=== PATIENT | female | born 1950 | race American Indian/Alaskan Native ===

== ENCOUNTER → 2017-11-23 | Outpatient (CLI) | payer MEDICARE, OTHER ==
[~2017-11-23] MED LIST: BISHYD5; ENJUVIA PO; ESTR.05TPW; ESTR.9; HYDCHL25 PO; LEVSOD50 PO; LOSA50 PO; METO50 PO; METO50ER PO; OLME20 PO
== END ==
LOC: LAB SHORT 09:48 → PLD 09:48
DX: D48.5 Neoplasm of uncertain behavior of skin (principal)
CPT/HCPCS: 88305

== ENCOUNTER → 2018-09-19 | Outpatient (CLI) | payer MEDICARE, OTHER | END | disposition home or self-care (01) | LOC: PLD 11:35 → LAB SHORT 11:35 | DX: D48.5 Neoplasm of uncertain behavior of skin (principal) | CPT/HCPCS: 88305 ==

== ENCOUNTER → 2018-09-28 | Outpatient (CLI) | payer MEDICARE, OTHER | END | disposition home or self-care (01) | LOC: LAB SHORT 15:57 → PLD 15:57 | DX: C44.41 Basal cell carcinoma of skin of scalp and neck (principal) | CPT/HCPCS: 88305 ==

== ENCOUNTER 2020-01-21 06:50 | Day surgery (SDC) | payer MEDICARE, OTHER ==
[~2020-01-21 06:50] MED LIST changes: +BIOTIN5000 MC1 SL; +CYCLOBENZAPRINE5 MG PO; +DULCOLAX STOOL100 MG PO; +Flonase 0.05% N16 GM; +GABA100 PO; +MAXALT10 MG PO; +MULTI-DAY PLUS1 EAC1 PO; +Vitamin D2000 UNIT PO
== END 2020-01-21 08:54 | disposition home or self-care (01) ==
PROVIDERS: Student in an Organized Health Care Education/Training Program
PROC: 0DBH8ZX Excision of Cecum, Via Natural or Artificial Opening Endoscopic, Diagnostic (ICD-10-PCS; principal; 2020-01-21 08:00)
DX: Z12.11 Encounter for screening for malignant neoplasm of colon (principal); K63.5 Polyp of colon; K64.4 Residual hemorrhoidal skin tags; K64.8 Other hemorrhoids; K57.30 Diverticulosis of large intestine without perforation or abscess without bleeding; I10 Essential (primary) hypertension; E03.9 Hypothyroidism, unspecified; Z79.899 Other long term (current) drug therapy

== ENCOUNTER → 2020-06-02 | Outpatient (CLI) | payer MEDICARE, OTHER ==
[~2020-06-02] MED LIST changes: +PANT40 PO; +VITAMIN B125000 MC1 PO
== END | disposition home or self-care (01) ==
LOC: PLD 08:05 → LAB SHORT 08:05
DX: L98.8 Other specified disorders of the skin and subcutaneous tissue (principal)
CPT/HCPCS: 88305

== ENCOUNTER → 2020-11-03 | Outpatient (CLI) | payer MEDICARE, OTHER ==
[~2020-11-03] MED LIST changes: +Apple Cider Vi300 MG PO; +CLIN150 PO; +LACT PO; +Norco 5-325 Ta1 EACH PO; +TRIPLE ANTIBIO1 EAC1 TOP
== END | disposition home or self-care (01) ==
LOC: LAB 11:11 → LAB SHORT 11:11
DX: D22.5 Melanocytic nevi of trunk (principal)
CPT/HCPCS: 88305

== ENCOUNTER → 2020-11-18 | Outpatient (CLI) | payer MEDICARE, OTHER | END | disposition home or self-care (01) | LOC: LAB SHORT 07:55 → PLD 07:55 | DX: D22.5 Melanocytic nevi of trunk (principal) | CPT/HCPCS: 88305 ==

== ENCOUNTER 2021-01-04 21:14 | Inpatient (IN) | payer MEDICARE, OTHER ==
[~2021-01-04] VITALS: Ht 172.7 cm; Wt 78.4 kg
[~2021-01-04 21:14] MED LIST changes: -Apple Cider Vi300 MG PO; -CLIN150 PO; -LACT PO; -Norco 5-325 Ta1 EACH PO; -TRIPLE ANTIBIO1 EAC1 TOP
[2021-01-05 00:04] LABS: BASOPHILS ABSOLUTE AUTO 0.11 K/mm3 (0.00-0.23); BASOPHILS PERCENT AUTO 1 % (0-2); EOSINOPHILS ABSOLUTE AUTO 0.33 K/mm3 (0.00-0.68); EOSINOPHILS PERCENT AUTO 3 % (0-6); Hematocrit 37.6 % (33.0-51.0); Hemoglobin 12.6 g/dL (11.5-16.0); IMMATURE GRAN ABSOLUTE AUTO 0.07 K/mm3 (0.00-0.10); IMMATURE GRAN PERCENT AUTO 1 % (0-1); LYMPHOCYTES ABSOLUTE AUTO 1.94 K/mm3 (0.84-5.20); LYMPHOCYTES PERCENT AUTO 15 % (21-46); MONOCYTES ABSOLUTE AUTO 0.92 K/mm3 (0.16-1.47); MONOCYTES PERCENT AUTO 7 % (4-13); Mean Corpuscular HGB 30.5 pg (26.0-34.0); Mean Corpuscular HGB Conc 33.5 g/dL (31.5-36.5); Mean Corpuscular Volume 91 fL (80-100); Mean Platelet Volume 10.2 fL (9.1-12.4); NEUTROPHILS ABSOLUTE AUTO 9.89 K/mm3 (1.96-9.15); NEUTROPHILS PERCENT AUTO 75 % (41-73); Platelet Count 265 K/mm3 (150-400); RDW Coefficient Variation 12.5 % (11.7-14.2); RDW Standard Deviation 41.5 fL (35.1-46.3); Red Blood Cell Count 4.13 M/mm3 (3.80-5.20); White Blood Cell Count 13.26 K/mm3 (4.00-11.30)
[2021-01-05 00:22] LABS: Alanine Aminotransfer (ALT/SGP 21 U/L (12-78); Albumin, Blood 4.1 g/dL (3.4-5.0); Albumin/Globulin Ratio 1.6 (0.8-1.8); Alk Phos 41 U/L (50-136); Anion Gap 5 mmol/L (6-16); Aspartate Aminotrans (AST/SGOT 10 U/L (12-37); Bilirubin, Total 0.4 mg/dL (0.1-1.0); Blood Urea Nitrogen 23 mg/dL (8-24); Bun/Creatinine Ratio 24.1 (12.0-20.0); CO2, Blood 28 mmol/L (21-32); Calcium, Blood 8.3 mg/dL (8.5-10.1); Chloride, Blood 101 mmol/L (98-108); Creatinine, Blood 0.95 mg/dL (0.40-1.00); Globulin, Blood 2.6 g/dL (2.2-4.0); Glomerular Filtration Rate >60 (60-); Glucose, Blood 96 mg/dL (70-99); Potassium, Blood 3.9 mmol/L (3.5-5.5); Sodium, Blood 134 mmol/L (136-145); Total Protein, Blood 6.7 g/dL (6.4-8.2)
[2021-01-05] MEDS ORDERED: Apple Cider Vi300 MG PO (06:05)
--- NOTE | 2021-01-05 06:48 | NUR ---
SHIFT SUMMARY PT ARRIVED TO FLOOR AT 0558, STABLE, INDEPENDENT, DENIES PAIN AT THIS TIME, ADMISSION COMPLETE, MILD SWELLING AND REDNESS TO R INDEX FINGER W/ RASH ON FINGER AND WRIST. DENIES ANY NEEDS AT THIS TIME, TELEMETRY IN PLACE AND CONFIRMED. WILL CONTINUE TO MONITOR AND REPPORT TO ONCOMING DAY RN.
[2021-01-05 08:41] LABS: BASOPHILS ABSOLUTE AUTO 0.07 K/mm3 (0.00-0.23); BASOPHILS PERCENT AUTO 1 % (0-2); EOSINOPHILS ABSOLUTE AUTO 0.02 K/mm3 (0.00-0.68); EOSINOPHILS PERCENT AUTO 0 % (0-6); Hematocrit 38.2 % (33.0-51.0); Hemoglobin 12.9 g/dL (11.5-16.0); IMMATURE GRAN ABSOLUTE AUTO 0.05 K/mm3 (0.00-0.10); IMMATURE GRAN PERCENT AUTO 1 % (0-1); LYMPHOCYTES ABSOLUTE AUTO 0.67 K/mm3 (0.84-5.20); LYMPHOCYTES PERCENT AUTO 7 % (21-46); MONOCYTES ABSOLUTE AUTO 0.13 K/mm3 (0.16-1.47); MONOCYTES PERCENT AUTO 1 % (4-13); Mean Corpuscular HGB 30.4 pg (26.0-34.0); Mean Corpuscular HGB Conc 33.8 g/dL (31.5-36.5); Mean Corpuscular Volume 90 fL (80-100); Mean Platelet Volume 10.3 fL (9.1-12.4); NEUTROPHILS PERCENT AUTO 91 % (41-73); Platelet Count 279 K/mm3 (150-400); RDW Coefficient Variation 12.6 % (11.7-14.2); RDW Standard Deviation 41.4 fL (35.1-46.3); Red Blood Cell Count 4.25 M/mm3 (3.80-5.20); White Blood Cell Count 9.84 K/mm3 (4.00-11.30)
[2021-01-05 08:49] LABS: Alanine Aminotransfer (ALT/SGP 18 U/L (12-78); Albumin, Blood 3.9 g/dL (3.4-5.0); Albumin/Globulin Ratio 1.4 (0.8-1.8); Alk Phos 38 U/L (50-136); Anion Gap 6 mmol/L (6-16); Aspartate Aminotrans (AST/SGOT 9 U/L (12-37); Bilirubin, Total 0.6 mg/dL (0.1-1.0); Blood Urea Nitrogen 17 mg/dL (8-24); Bun/Creatinine Ratio 23.4 (12.0-20.0); CO2, Blood 24 mmol/L (21-32); Calcium, Blood 8.2 mg/dL (8.5-10.1); Chloride, Blood 104 mmol/L (98-108); Creatinine, Blood 0.73 mg/dL (0.40-1.00); Globulin, Blood 2.7 g/dL (2.2-4.0); Glomerular Filtration Rate >60 (60-); Glucose, Blood 138 mg/dL (70-99); Potassium, Blood 4.2 mmol/L (3.5-5.5); Sodium, Blood 134 mmol/L (136-145); Total Protein, Blood 6.6 g/dL (6.4-8.2)
[2021-01-05 13:37] LABS: SARS-Cov-2 (COVID-19) PCR, MMC NEGATIVE (NEGATIVE)
--- NOTE | 2021-01-05 17:05 | NUR ---
PT TO SDS FROM 209. NPO SINCE THIS AM. L AC IV IN PLACE, FLUSHES s DIFFICULTY. VOIDS PRIOR TO SDS. Lungs clear T/O to Auscultation. History, Chart, Medications and Allergies reviewed before start of procedure.
--- NOTE | 2021-01-06 04:30 | NUR ---
SHIFT SUMMARY POD#1 RIGHT FINGER I+D. AAOX4. DISCOMFORT CONTROLLED WITH X1 NORCO. NO NAUSEA/EMESIS. DRESSING TO RIGHT HAND C/D/I. CAP REFILL BRISK, DENIES N/T, MOVES FINGERS WELL. UP TO RESTROOM INDEPENDENTLY. GOOD PO INTAKE + OUTPUT. IV ABX PER ORDERS. NO ACUTE CHANGES OVER NIGHT. PT CURRENTLY RESTING IN BED WITH CALL LIGHT IN REACH.
[2021-01-06] MEDS ORDERED: LACT PO (10:39)
[2021-01-06] MEDS ORDERED: CLIN150 PO (10:40)
[2021-01-06] MEDS ORDERED: TRIPLE ANTIBIO1 EAC1 TOP (10:40)
[2021-01-06] MEDS ORDERED: Norco 5-325 Ta1 EACH PO (10:40)
--- NOTE | 2021-01-06 13:44 | NUR ---
DISCHARGE SUMMARY PT GIVEN VERBAL AND WRITTEN DC INSTRUCTIONS. IV REMOVED, TIP INTACT. PT VERBALIZED UNDERSTANDING ABOUT DISCHARGE INSTRUCTIONS. PT WHEELED OUT IN WHEELCHAIR AND DISCHARGED IN VEHICLE WITH HER .
--- NOTE | 2021-01-08 13:53 | NUR ---
PT CALLED AND STATED CLINDAMYCIN MAKING NAUSEATED. REQUESTED NEW ABX. SPOKE TO DR HUI AND OBTAINED ORDER FOR DOXYCYCLINE 100 MG PO BID, DISPENSE 10 TABS. CALLED TO [facility] PER PT REQUEST.
== END 2021-01-06 13:15 | disposition home or self-care (01) | DRG 603 ==
LOC: ER 21:14 → ERHOLD 01-05 02:27 → ER 01-05 02:27 → SURS 01-05 02:27 → MEDS 01-05 02:27 → SURS 01-05 05:46
PROVIDERS: Emergency Medicine; Orthopaedic Surgery; ADMIT Internal Medicine
PROC: 0JCJ0ZZ Extirpation of Matter from Right Hand Subcutaneous Tissue and Fascia, Open Approach (ICD-10-PCS; principal; 2021-01-05 19:45)
DX: L03.011 Cellulitis of right finger (principal); S61.240A Puncture wound with foreign body of right index finger without damage to nail, initial encounter; I10 Essential (primary) hypertension; K58.9 Irritable bowel syndrome, unspecified; E03.9 Hypothyroidism, unspecified; Z91.013 Allergy to seafood; Z90.710 Acquired absence of both cervix and uterus; Z90.89 Acquired absence of other organs; Z88.1 Allergy status to other antibiotic agents; Y93.H2 Activity, gardening and landscaping; Z98.890 Other specified postprocedural states; Y92.007 Garden or yard of unspecified non-institutional (private) residence as the place of occurrence of the external cause; W60.XXXA Contact with nonvenomous plant thorns and spines and sharp leaves, initial encounter
CPT/HCPCS: 36415; 73201; 76882; 80053; 83605; 85025; 87040; 90471; 90714; 96361; 96365; 96367; 96375; 96376; 99284-25; A9270; G0378; J1100; J1200; J1885; J2250; J2405; J2543; J2704; J2930; J3010; J3370; J7030; J7040; J7050; J7120; Q9967; U0004

== ENCOUNTER → 2022-12-06 | Outpatient (CLI) | payer MEDICARE, OTHER ==
[~2022-12-06] MED LIST changes: +Apple Cider Vi300 MG PO; +CLIN150 PO; +LACT PO; +Norco 5-325 Ta1 EACH PO; +TRIPLE ANTIBIO1 EAC1 TOP
== END | disposition home or self-care (01) ==
LOC: PLD 11:33 → LAB SHORT 11:33
DX: D48.5 Neoplasm of uncertain behavior of skin (principal)
CPT/HCPCS: 88305

== ENCOUNTER 2024-11-12 05:10 | Emergency (ER) | payer MEDICARE, OTHER ==
[~2024-11-12] VITALS: Ht 172.7 cm; Wt 78.5 kg
[~2024-11-12 05:10] MED LIST changes: +ASPI81CH PO; +CLIMARA1 EACH TOP; +ELDERBERRY IMM1 EACH PO; +ELDERBERRY350 MG PO; +GLUCHON PO; +MAGNESIUM OXID500 MG PO; +MIRALAX17 GM PO; +OXYC5 PO; +PROM25 PO; +TIZA4 PO; +TRAM50 PO; +VITAMIN D310 MC4 PO; +Vitamin B Comple1 EA PO; +Vitamin C100 M1 PO
[2024-11-12] MEDS ORDERED: Amoxicillin/Clavulanate K 875 MG Tab PO ONE (07:10)
[2024-11-12] MEDS ORDERED: HYDROcodone 5-APAP 325 TAB PO ONE (07:10)
[2024-11-12 07:27] VITALS: BP 156/73
[2024-11-12] MEDS ORDERED: AMOCLA875 PO (07:44)
[2024-11-12] MEDS ORDERED: OXAYDO5 M1 PO (17:30)
== END 2024-11-12 08:00 | disposition home or self-care (01) ==
LOC: ER 05:10
DX: S61.451A Open bite of right hand, initial encounter (principal); W55.01XA Bitten by cat, initial encounter; I10 Essential (primary) hypertension; E03.9 Hypothyroidism, unspecified; Z88.1 Allergy status to other antibiotic agents; Z91.013 Allergy to seafood; Z79.899 Other long term (current) drug therapy; Z79.890 Hormone replacement therapy
CPT/HCPCS: 73120; 99283; 99283-25; A9270

== ENCOUNTER 2024-11-12 15:48 | Emergency (ER) | payer MEDICARE, OTHER ==
[~2024-11-12] VITALS: Ht 172.7 cm; Wt 78.5 kg
[~2024-11-12 15:48] MED LIST changes: +AMOCLA875 PO
[2024-11-12 16:03] VITALS: BP 154/105
[2024-11-12] MEDS ORDERED: OXAYDO5 M1 PO (17:30)
== END 2024-11-12 17:34 | disposition home or self-care (01) ==
LOC: ER 15:48
DX: S61.452A Open bite of left hand, initial encounter (principal); L08.9 Local infection of the skin and subcutaneous tissue, unspecified; I10 Essential (primary) hypertension; Z91.013 Allergy to seafood; Z88.1 Allergy status to other antibiotic agents; Z79.890 Hormone replacement therapy; Z79.899 Other long term (current) drug therapy; W55.01XA Bitten by cat, initial encounter
CPT/HCPCS: 99283

== ENCOUNTER → 2024-11-22 | Outpatient (CLI) | payer MEDICARE, OTHER ==
[~2024-11-22] MED LIST changes: +OXAYDO5 M1 PO
[2024-11-23 12:46] LABS: C DIFFICILE DNA NEGATIVE (Negative)
== END ==
LOC: LAB 06:45 → LAB SHORT 06:45
PROVIDERS: Family Medicine
DX: R19.7 Diarrhea, unspecified (principal)
CPT/HCPCS: 87493